=== PATIENT | female | born 1990 | race Caucasian/White ===

== ENCOUNTER 2019-06-09 13:14 | Emergency (ER) | payer MEDICAID ==
[~2019-06-09] VITALS: Ht 152.4 cm; Wt 83.0 kg
[2019-06-09 13:28] VITALS: Ht 152.4 cm; Wt 83.0 kg
[2019-06-09 16:04] VITALS: BP 123/70
== END 2019-06-09 16:04 | disposition home or self-care (01) ==
LOC: ED 13:14
DX: S63.502A Unspecified sprain of left wrist, initial encounter (principal); W01.0XXA Fall on same level from slipping, tripping and stumbling without subsequent striking against object, initial encounter; Y93.89 Activity, other specified; Y92.89 Other specified places as the place of occurrence of the external cause; Y99.8 Other external cause status